=== PATIENT | male | born 1990 | race Caucasian/White ===

== ENCOUNTER 2016-10-23 13:51 | Day surgery (SDC) | payer OTHER ==
[~2016-10-23] VITALS: Ht 180.3 cm; Wt 86.6 kg
[2016-10-23] VITALS (8 sets, daily range): BP systolic 106–129; BP diastolic 50–78; PULSE 16–79; RESP 12–18; O2SAT 95–98
[2016-10-23] MEDS ORDERED: Propofol 10,000 mCg/mL 20 mL Inj ONE (13:52)
[2016-10-23] MEDS ORDERED: Ondansetron 2 mg/mL 2 mL Inj ONE (13:52)
[2016-10-23] MEDS ORDERED: DOXY100C2 PO (13:52)
[2016-10-23] MEDS ORDERED: fentaNYL-PF 50 mCg/mL 2 mL Inj ONE (13:52)
[2016-10-23] MEDS ORDERED: Dexamethasone 4 mg/mL Inj ONE (13:52)
[2016-10-23] MEDS ORDERED: CeFAZolin 2 Gm/50 mL D5W Duplex Bag IV ONE (13:55)
[2016-10-23] MEDS ORDERED: CeFAZolin Inj 2 GM in IV Premix 1 EACH IV ONE (14:17)
[2016-10-23] MEDS: Lactated Ringer's 1,000 ML IV SCH ×2 (14:24→15:33)
[2016-10-23] MEDS ORDERED: Lactated Ringer's 500 ML IV PRN (15:30)
[2016-10-23] MEDS ORDERED: Lactated Ringer's 1,000 ML IV SCH (15:30)
[2016-10-23] MEDS ORDERED: MetoCLOpramide 5 mg/mL 2 mL Inj IVPUSH PRN (15:30)
[2016-10-23] MEDS ORDERED: EPHEDrine Sulfate 50 mg/mL Inj IVPUSH PRN (15:30)
[2016-10-23] MEDS ORDERED: fentaNYL-PF 50 mCg/mL 2 mL Inj IVPUSH PRN (15:30)
[2016-10-23] MEDS ORDERED: Atropine 0.4 mg/mL Inj IVPUSH PRN (15:30)
[2016-10-23] MEDS ORDERED: HYDROmorphone 1 mg/mL Inj IVPUSH PRN (15:30)
[2016-10-23] MEDS ORDERED: Phenylephrine 10,000 mCg/mL Inj IVPUSH PRN (15:30)
[2016-10-23] MEDS ORDERED: Ondansetron 2 mg/mL 2 mL Inj IVPUSH PRN (15:30)
[2016-10-23] MEDS ORDERED: Labetalol 5 mg/mL 4 mL Inj IV PRN (15:30)
--- NOTE | 2016-10-23 15:51 | PCM.HPANE ---
Patient Data Surgeon Admitting Provider: Attending Provider:Rodriguez Crowder DO Primary Care Physician:Kit Other Provider:Otis Leon Anesthesia Reason for Visit Left Middle Finger Fx Ht/WT & BMI Height (Feet): 5 Height (Inches): 11 Weight (Kilograms): 86.6 Body Mass Index 26.00 Allergies Coded Allergies: No Known Allergies (Unverified , 10/23/16) Past Anesthesia History Anesthesia History: Denies:: Abnormal Airway, Anesthesia Reactions, Difficult Intubation, Fam Anesthesia Reaction, Fam Malignant Hypertherm, Malignant Hyperthermia Diabetes History Hx Diabetes?: No MRSA MRSA: No Medications Hypertension Medication: No Home Meds Incl Beta Connor: No Reported Medications Doxycycline Hyclate 100 Mg [id number] Mg PO BID 10/23/16 History History of ENT Problems?: No HEENT History: Denies:: Abnormal Airway Cataracts Difficult Intubation Dysphagia Glaucoma Hearing Problem Sinus Problem TMJ Denture Type: None Teeth Condition: Within Normal Limits Hx of Heart Problems?: No Cardiovascular History: Denies:: AICD Abdominal Aortic Aneurism Atrial Fibrillation Cardiac Surgery Chest Pain Congestive Heart Failure Coronary Artery Disease Edema Heart Murmur Hypertension Irregular Heartbeat Pacemaker Peripheral Vascular Rheumatic Fever Thrombophlebitis Valvular Heart Disease Hx of Respiratory Problem?: No Respiratory History: Denies:: Asthma COPD Chest Surgery Cough Dyspnea Emphysema Hemoptysis Oxygen Administration Pneumonia Pulmonary Embolism Tuberculosis Use of C-PAP Machine Use of Inhalers / NEBS Hx Neurologic Problems?: No Neurological History: Denies:: Alzheimer's Disease CVA Dementia Dizziness Headaches Multiple Sclerosis Parkinson's Disease Peripheral Neuropathy Seizures TIA Hx of GI Problems?: No Hx of Problems?: No Hx Musculoskeletal Problems?: Yes (current Left middle finger injury) Hx of Psycho/Social Problems?: No Hx Surgeries?: No Hx Any Other Health Problems?: No Hx Diabetes: No Hx Alcohol Use: NoHx Substance Use: No Smoking Status: Current Every Day Smoker Have You Smoked inLast 12 mo: Yes Stop/Bang AMRIK Risk Assessment: Low Risk, <3 Yes Risk Assessment Category Category 1A: Patient has history of documented sleep apnea, and HAS NOT received any narcotic, sedative or anesthesia administration during this stay. Category 1B: Patient has history of documented sleep apnea, and HAS received any narcotic , sedative or anesthesia administration during this stay Category 2: Patient has SUSPECTED Obstructive Sleep Apnea, and HAS received any narcotic , sedative or anesthesia administration during this stay. Category 3: Patient has SUSPECTED Obstructive Sleep Apnea and HAS NOT received narcotic, sedative or anesthesia administration during this stay. Category 4: Outpatient in Procedural Areas with known sleep apnea or who screen positive for High Risk via the STOP/BANG questionnaire. Exam Exam Vital Signs Vital Signs Date Time Temp Pulse Resp B/P Pulse Ox O2 Delivery O2 Flow Rate FiO2 10/23/16 14:19 36.0 70 18 127/74 95 Room Air General Appearance: Alert, Oriented X3, Cooperative, No Acute Distress HEENT/AIRWAY: MP 2 Lungs: Clear to Auscultation, Normal Air Movement Heart: Exam Unremarkable, Regular Rate/Rhythm, No Murmurs/Rubs/Gallops Meds/Labs/Diagnostics Admission Meds Current Medications Lactated Ringer's (Lr) 1,000 ml @ 80 mls/hr [id number] IV Last administered on t 14:24; Start 10/23/16 at 14:20; Stop 10/23/16 at 23:59 Plan Impression Patient chart reviewed, patient interviewed and anesthestic plan with risks, benefits, and alternatives discussed, and informed consent obtained. NPO per Anesth. Guidelines: Yes ASA Physical Status: ASA2 Mod Systemic Disease Anesthetic Plan: GA Bene/Risks/Altern/Consents: Yes HP Complete Prior to Induction: Yes Javon Santa MD Oct 23, 2016 15:21
[2016-10-23] MEDS ORDERED: HYDROcodone-APAP 5-325 mg Tablet PO PRN (16:35)
--- NOTE | 2016-10-23 16:42 | PCM.ANEP1 ---
Post Anesthesia PACU Phase 1 Assessment Vital Signs Vital Signs Date Time Temp Pulse Resp B/P Pulse Ox O2 Delivery O2 Flow Rate FiO2 10/23/16 16:35 36.6 61 17 106/50 98 Simple Mask 10 10/23/16 14:19 36.0 70 18 127/74 95 Room Air Anesthetic Administered: GA Level of Alertness: Sleepy, easy to arouse GARZON's with Equal Strength: Yes Pain: No Nausea or Vomiting: No CV Function & Hydration Stable: Yes Airway Device: Oralpharangeal Airway Oxygen Delivery: Simple Mask Lungs: Clear to Auscultation, Normal Air Movement PACU Phase 2 Assessment Complications: No Follow up Care: N/A Patient Instructions Provided: N/A Javon Santa MD Oct 23, 2016 16:42
--- NOTE | 2016-10-23 22:57 | OP ---
[address] [address] OPERATIVE REPORT PATIENT: TERESA CORRIGAN : 1990 MR#: [id number] ADMIT: 10/23/2016 JOB ID: [id number] DATE OF SURGERY: 10/23/2016 PREOPERATIVE DIAGNOSIS(ES): 1. Left middle finger open distal phalanx fracture. 2. Left middle finger nail bed laceration. POSTOPERATIVE DIAGNOSIS(ES): 1. Left middle finger open distal phalanx fracture. 2. Left middle finger nail bed laceration. PROCEDURE: 1. Left middle finger open reduction, internal fixation of an open distal phalanx fracture. 2. Irrigation and debridement of open fracture. 3. Repair of left middle finger nail bed. SURGEON: Rodriguez Crowder DO. ANESTHESIA: General. HISTORY: The patient is a 26-year-old male that presented to me today with a 5-day history of a crush injury to the left middle finger that he sustained at work. He sustained an open distal phalanx fracture with a nail bed laceration mainly proximally at the terminal matrix. I discussed with the patient due to the amount of displacement to the fracture and the open wound to proceed with irrigation and debridement with open reduction, internal fixation of the distal phalanx fracture and repair the nail bed. He understood the risks include, but are not limited to, neurovascular injury, tendon injury, infection, failure of fixation, nail bed deformity, no better, stiffness, persistent pain which may require further intervention. The patient had all questions answered. Consent was signed and placed in the chart. PROCEDURE IN DETAIL: The patient was taken to the operating room and placed supine on the operating table. Surgical time-out performed and everyone in the room was in agreement. After appropriate anesthesia was obtained, a left upper arm tourniquet was applied, and the left upper extremity was prepped and draped in sterile fashion. Left upper extremity was then exsanguinated and the tourniquet inflated to 250 mmHg. The patient's left middle finger was approached first by undermining with a [place] the nail plate. The nail plate was then removed in its entirety at the eponychium. The nail plate was found to be significantly jagged and this was removed revealing the underlying nail bed laceration that was stellate in fashion at the level of the germinal matrix. The distal phalanx fracture was protruding through the nail bed laceration. The fracture site was identified and exposed and copious irrigation then performed. Perieponychial oblique incisions were then made to further elevate the eponychium to expose the proximal terminal matrix. Copious irrigation was then performed. The fracture was manually reduced and transfixed with a 0.035 and 0.028 retrograde K-wire across the fracture site and across the distal interphalangeal joint. Multiple views of fluoroscopy were utilized to verify anatomic reduction and appropriate placement of the two K-wires. K-wires were then bent outside the skin and cut short. The nail bed was repaired with 6-0 plain gut followed by closure of the eponychial incisions as well as the lacerations to the paronychium utilizing 5-0 chromic. The patient's previous nail plate was cleaned up around the edges and then cleansed with saline as well as iodine. It was then interposed between the nail folds and secured with a nylon [id number] suture through the eponychium and around the K-wires. The patient was then placed into a bulky dressing with an aluminum tip protector incorporated. ESTIMATED BLOOD LOSS: Less 1 cc. COMPLICATIONS: None. DISPOSITION: The patient tolerated the procedure well. Anesthesia was reversed. The patient was transferred back to recovery. IMPLANTS: A 0.035 and 0.028 inch K-wire. POSTOPERATIVE PLAN: The patient will follow up in the office in two weeks. We will repeat x-rays at that time outside of the immobilization and it will be four weeks postop before removing the pins and initiating DIP range of motion. He is to continue the current antibiotics that were prescribed in the emergency department.
== END 2016-10-23 23:59 | disposition home or self-care (01) ==
LOC: SAS 13:51
PROVIDERS: ATTEND Orthopaedic Surgery
DX: S62.633B Displaced fracture of distal phalanx of left middle finger, initial encounter for open fracture (principal); S61.313A Laceration without foreign body of left middle finger with damage to nail, initial encounter; W27.8XXA Contact with other nonpowered hand tool, initial encounter; Y93.89 Activity, other specified; Y92.9 Unspecified place or not applicable; Y99.0 Civilian activity done for income or pay; F17.210 Nicotine dependence, cigarettes, uncomplicated
CPT/HCPCS: 11012; 11760; 26765; J0690; J1100; J1885; J2250; J2405; J3010; J7120